=== PATIENT | female | born 1960 | race Caucasian/White ===

== ENCOUNTER → 2017-10-31 | Outpatient (CLI) | payer OTHER ==
--- NOTE | 2017-10-31 15:55 | Diagnostic Imaging Report ---
PROCEDURE:X-RAY LIMITED SKULL, LESS THAN FOUR VIEWS COMPARISON:None. INDICATIONS:MRI safety screening FINDINGS/CONCLUSION: 2 views of the skull (AP and lateral). 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 Findings were discussed with the nuclear technologist. Planned MRI was canceled. Dictated by: Akira Mata M.D. on 10/31/2017 at 15:57 Electronically approved by: Akira Mata M.D. on 10/31/2017 at 15:57
== END ==
LOC: MRI 14:23
PROVIDERS: ATTEND Specialist
DX: M54.5 Low back pain (principal)
CPT/HCPCS: 70250

== ENCOUNTER → 2017-12-26 | Outpatient (CLI) | payer OTHER ==
--- NOTE | 2017-12-27 07:56 | Diagnostic Imaging Report ---
Examination: CT LUMBAR SPINE WITHOUT CONTRAST History: Low back pain Comparison studies: None. Technique: Axial images were obtained through the lumbar spine from T12. Coronal and sagittal reconstructions obtained from the axial data. Intravenous contrast: None Findings: The usual 5 non-rib bearing lumbar vertebral bodies are present. There is a transitional vertebrae with sacralization of L5. Alignment: Normal lordosis. No scoliosis. Soft tissues: Atherosclerotic calcification of the abdominal aorta. Paraspinal muscles: No abnormalities. Sacroiliac joints: Vacuum phenomenon is demonstrated bilaterally, consistent with degenerative changes. Vertebrae: No fractures, infection or neoplasm. Degenerative changes: L1-L2: No abnormalities. L2-L3: No abnormalities. L3-L4: Asymmetric to the left bulge and mild ligamentum flavum thickening results in mild right and severe left neural foraminal narrowing. No canal stenosis. L4-L5: Grade I anterolisthesis without pars defect. Uncovering of a diffuse disc bulge, mild ligamentum flavum thickening and severe bilateral facet arthropathy result in severe bilateral neural foraminal narrowing and moderate canal stenosis. L5-S1: Rudimentary disc. IMPRESSION: 1. Degenerative changes at L3-L4 and L4-L5 with degenerative grade I anterolisthesis and moderate canal and severe bilateral foraminal stenosis at L4-L5. 2. Severe left foraminal narrowing at L3-L4. Signed by: Dr. Danielle Combs M.D. on 12/27/2017 7:53 AM
== END ==
LOC: CT 13:49
PROVIDERS: ATTEND Specialist
DX: M54.5 Low back pain (principal)
CPT/HCPCS: 72131

== ENCOUNTER 2021-05-21 20:12 | Inpatient (IN) | payer SELFPAY ==
[~2021-05-21] VITALS: Ht 152.4 cm; Wt 49.9 kg
[2021-05-21] MEDS ORDERED: ACETAMINOPHEN 325 MG TAB PO STA (20:34)
[2021-05-21] MEDS ORDERED: SODIUM CHLORIDE 0.9% 1000ML 1,000 ML IV STA (20:34)
[2021-05-21] MEDS ORDERED: IPRATROPIUM BROMIDE 0.02% 2.5 ML NEB NEB STA (20:38)
[2021-05-21] MEDS ORDERED: ALBUTEROL SULF 0.083% NEB SOLN 3 ML NEB NEB STA (20:38)
[2021-05-21] MEDS ORDERED: PIPERACILLIN/TAZOBACTAM 3.375 GM in SODIUM CHLORIDE 0.9% 50ML 50 ML IV ONE (20:45)
[2021-05-21] MEDS ORDERED: IPRATROPIUM BROMIDE 0.02% 2.5 ML NEB ONE (21:15)
[2021-05-21] MEDS ORDERED: ALBUTEROL SULF 0.083% NEB SOLN 3 ML NEB ONE (21:15)
[2021-05-21] MEDS ORDERED: ACETAMINOPHEN 325 MG TAB ONE (21:15)
[2021-05-21] MEDS ORDERED: SODIUM CHLORIDE 0.9% 250ML 250 ML ONE (21:16)
[2021-05-21] MEDS ORDERED: SODIUM CHLORIDE 0.9% 1000ML 1,000 ML ONE (21:16)
[2021-05-21] MEDS ORDERED: SODIUM CHLORIDE 0.9% 50ML 100 ML ONE (21:16)
[2021-05-21] MEDS ORDERED: PIPERACILLIN/TAZOBACTAM 3.375 GM VIAL ONE (21:17)
[2021-05-21] MEDS ORDERED: ACETAMINOPHEN 325 MG TAB PO PRN (21:30)
[2021-05-21] MEDS ORDERED: ALBUTEROL SULF 0.083% NEB SOLN 3 ML NEB NEB SCH (21:30)
[2021-05-21] MEDS ORDERED: DEXTROSE 50% SYRINGE 50 ML IV PRN (21:30)
[2021-05-21 22:35] LABS: CREATINE KINASE 48 IU/L (29-168)
[2021-05-21] MEDS: ALBUTEROL/IPRATROPIUM 3 ML NEB NEB SCH (23:00)
[2021-05-22] VITALS (9 sets, daily range): BP systolic 105–133; BP diastolic 70–79
[2021-05-22] MEDS ORDERED: PIPERACILLIN/TAZOBACTAM 3.375 GM in SODIUM CHLORIDE 0.9% 50ML 50 ML IV SCH ×2
[2021-05-22] MEDS ORDERED: ONDANSETRON HCL INJ 2MG/ML 2ML 2 MG/ML VIAL IV PRN (01:30)
[2021-05-22] MEDS ORDERED: ENALAPRILAT IV INJ 1.25 MG/ML VIAL IV PRN (01:30)
[2021-05-22] MEDS ORDERED: DIPHENHYDRAMINE HCL INJ 50 MG/ML VIAL IV PRN (01:30)
[2021-05-22] MEDS ORDERED: MELATONIN 3 MG TAB PO STA (02:04)
[2021-05-22] MEDS: GUAIFENESIN/DEXTROMETHORPHAN LIQD 5 ML UDC PO PRN ×4 (02:23→15:19)
[2021-05-22] MEDS ORDERED: INFLUENZA VIRUS VAC SPLIT INJ 0.5 ML SYR IM SCH (02:25)
[2021-05-22] MEDS ORDERED: PNEUMOCOCCAL VACCINE POLYVALENT 23 MCG/0.5 ML VIAL IM SCH (02:25)
[2021-05-22] MEDS: ALBUTEROL/IPRATROPIUM 3 ML NEB NEB SCH ×6 (02:45→23:05)
[2021-05-22] MEDS: SOD CHL 0.9% IV SCH ×8 (03:00→21:27)
[2021-05-22] MEDS: PIPERACILLIN IV SCH ×8 (03:00→21:27)
[2021-05-22] MEDS: TAZO IV SCH ×8 (03:00→21:27)
[2021-05-22] MEDS ORDERED: SODIUM CHLORIDE 0.9% 250ML 250 ML ONE (03:27)
[2021-05-22] MEDS ORDERED: METFORMIN HCL500 M1 PO (03:46)
[2021-05-22] MEDS ORDERED: TERBUTALINE SULF5 MG PO (03:46)
[2021-05-22 06:23] LABS: BASOPHILS # (AUTO) 0.1 (0.0-0.1); BASOPHILS % 0.8 % (0.0-1.0); EOSINOPHILS # (AUTO) 0.1 (0.0-0.4); HEMATOCRIT 42.8 % (34.2-44.1); LYMPHOCYTES # (AUTO) 1.1 (1.0-3.2); LYMPHOCYTES % 16.8 % (18.0-39.1); MEAN CORPUSCULAR HEMOGLOBIN 32.6 pg (28-32); MEAN CORPUSCULAR HGB CONC 32.7 g/dL (31-35); MEAN CORPUSCULAR VOLUME 99.5 fL (81-99); MONOCYTES # (AUTO) 0.8 (0.2-0.8); MONOCYTES % 12.3 % (4.4-11.3); NEUTROPHILS # (AUTO) 4.3 (2.1-6.9); NEUTROPHILS % 68.5 % (38.7-80.0); PLATELET COUNT 133 x10e3/uL (140-360); RED CELL DISTRIBUTION WIDTH 12.2 % (11.7-14.4)
[2021-05-22 06:37] LABS: CREATINE KINASE MB 5.6 ng/mL (0-5.0)
[2021-05-22 06:39] LABS: ALBUMIN 2.8 g/dL (3.5-5.0); ALBUMIN/GLOBULIN RATIO 0.9 (0.8-2.0); ANION GAP 13.4 mmol/L (8-16); CALCIUM 8.4 mg/dL (8.4-10.2); CHOL/HDL RATIO 3.5 (3.0-3.6); CREATININE, SERUM 0.8 mg/dL (0.57-1.11); MAGNESIUM 1.6 MG/DL (1.3-2.1); POTASSIUM 3.4 mmol/L (3.5-5.1)
[2021-05-22] MEDS: INSULIN REGULAR, HUMAN 100 UNIT/1 ML SQ SCH ×4 (07:30→20:48)
[2021-05-22] MEDS ORDERED: HYDRALAZINE HCL 20 MG/ML VIAL IV PRN (07:45)
[2021-05-22] MEDS ORDERED: POLYETHYLENE GLYCOL 3350 17 GM PACK PO PRN (07:45)
[2021-05-22] MEDS ORDERED: ACETAMIN/BUTALBITAL/CAFFEINE TAB PO PRN (07:45)
[2021-05-22] MEDS ORDERED: CEPACOL SORE THROAT LOZENGES PO ONE (08:30)
[2021-05-22] MEDS ORDERED: MAGNESIUM SULFATE 2GM/50ML 50 ML IV ONE (08:30)
[2021-05-22] MEDS ORDERED: GUAIFENESIN 600 MG TAB PO SCH (09:00)
[2021-05-22] MEDS ORDERED: FAMOTIDINE 20 MG/2 ML VIAL IV SCH (09:00)
[2021-05-22] MEDS: FAMOTIDINE 20 MG TAB PO SCH ×2 (09:49→16:30)
[2021-05-22] MEDS: SODIUM CHLORIDE 0.9% 1000ML 1,000 ML IV SCH (09:49)
[2021-05-22] MEDS: METFORMIN HCL 500 MG TAB PO SCH (09:49)
[2021-05-22] MEDS: GUAIFENESIN 600MG/DEXTROMETHORPHAN 30MG TABSR PO SCH ×2 (09:50→17:00)
[2021-05-22] MEDS: CEPACOL SORE THROAT LOZENGES PO PRN (09:50)
[2021-05-22] MEDS: HYDROCODONE/APAP 5MG-325MG TAB PO PRN ×3 (09:50→21:26)
[2021-05-22] MEDS ORDERED: SODIUM CHLORIDE 0.9% 50ML 50 ML ONE (10:40)
[2021-05-22] MEDS ORDERED: IOPAMIDOL 370 MG/ML 200 ML INFUS..BTL INJ ONE (10:40)
[2021-05-22] MEDS ORDERED: POTASSIUM CHLORIDE 20 MEQ TAB CR PO ONE (11:30)
[2021-05-22] MEDS ORDERED: SODIUM CHLORIDE 0.45% 1,000 ML IV SCH (14:15)
[2021-05-22] MEDS ORDERED: FAMOTIDINE 20 MG TAB PO SCH (16:30)
[2021-05-22] MEDS: ENOXAPARIN SOD INJ 40 MG/0.4 ML SYR SC SCH (17:00)
[2021-05-22 19:04] LABS: CREATINE KINASE MB 5.9 ng/mL (0-5.0)
[2021-05-22] MEDS: MELATONIN 3 MG TAB PO SCH (21:27)
[2021-05-23] VITALS: BP 134/84
[2021-05-23] MEDS: ALBUTEROL/IPRATROPIUM 3 ML NEB NEB SCH ×4 (02:10→23:25)
[2021-05-23] MEDS: TAZO IV SCH ×8 (03:30→21:39)
[2021-05-23] MEDS: PIPERACILLIN IV SCH ×8 (03:30→21:39)
[2021-05-23] MEDS: SOD CHL 0.9% IV SCH ×8 (03:30→21:39)
[2021-05-23 04:00] VITALS: BP 139/103
[2021-05-23] MEDS: HYDROCODONE/APAP 5MG-325MG TAB PO PRN ×4 (04:15→22:30)
[2021-05-23] MEDS: GUAIFENESIN/DEXTROMETHORPHAN LIQD 5 ML UDC PO PRN ×2 (04:19→21:39)
[2021-05-23] MEDS: SODIUM CHLORIDE 0.9% 1000ML 1,000 ML IV SCH (05:00)
[2021-05-23 06:09] LABS: BASOPHILS % 1.2 % (0.0-1.0); EOSINOPHILS # (AUTO) 0.1 (0.0-0.4); EOSINOPHILS % 2.6 % (0.0-6.0); HEMATOCRIT 38.7 % (34.2-44.1); HEMOGLOBIN 12.5 g/dL (12.0-16.0); LYMPHOCYTES # (AUTO) 0.9 (1.0-3.2); LYMPHOCYTES % 25.6 % (18.0-39.1); MEAN CORPUSCULAR HEMOGLOBIN 32.3 pg (28-32); MEAN CORPUSCULAR HGB CONC 32.3 g/dL (31-35); MONOCYTES # (AUTO) 0.4 (0.2-0.8); MONOCYTES % 11.8 % (4.4-11.3); NEUTROPHILS % 58.2 % (38.7-80.0); PLATELET COUNT 123 x10e3/uL (140-360); RED BLOOD COUNT 3.87 x10e6/uL (3.6-5.1); RED CELL DISTRIBUTION WIDTH 12.4 % (11.7-14.4)
[2021-05-23 06:36] LABS: ANION GAP 9.8 mmol/L (8-16); CALCIUM 7.9 mg/dL (8.4-10.2); CREATININE, SERUM 0.81 mg/dL (0.57-1.11); MAGNESIUM 1.7 MG/DL (1.3-2.1); PHOSPHORUS 3.7 MG/DL (2.3-4.7); POTASSIUM 3.8 mmol/L (3.5-5.1)
[2021-05-23] MEDS: INSULIN REGULAR, HUMAN 100 UNIT/1 ML SQ SCH ×4 (07:30→21:00)
[2021-05-23 08:11] VITALS: BP 135/81
[2021-05-23] MEDS: FAMOTIDINE 20 MG TAB PO SCH ×2 (09:25→16:21)
[2021-05-23] MEDS: METFORMIN HCL 500 MG TAB PO SCH (09:25)
[2021-05-23] MEDS: GUAIFENESIN 600MG/DEXTROMETHORPHAN 30MG TABSR PO SCH ×2 (09:25→16:21)
[2021-05-23 11:45] VITALS: BP 149/95
[2021-05-23] MEDS: ENOXAPARIN SOD INJ 40 MG/0.4 ML SYR SC SCH (16:21)
[2021-05-23 20:00] VITALS: BP 181/98
[2021-05-23] MEDS: MELATONIN 3 MG TAB PO SCH (21:39)
[2021-05-24] VITALS (9 sets, daily range): BP systolic 126–182; BP diastolic 71–118
[2021-05-24] MEDS: CEPACOL SORE THROAT LOZENGES PO PRN (01:24)
[2021-05-24] MEDS: ALBUTEROL/IPRATROPIUM 3 ML NEB NEB SCH ×5 (02:12→19:00)
[2021-05-24] MEDS: PIPERACILLIN IV SCH ×8 (03:05→20:52)
[2021-05-24] MEDS: TAZO IV SCH ×8 (03:05→20:52)
[2021-05-24] MEDS: SOD CHL 0.9% IV SCH ×8 (03:05→20:52)
[2021-05-24] MEDS: HYDROCODONE/APAP 5MG-325MG TAB PO PRN ×4 (05:04→19:39)
[2021-05-24 06:11] LABS: BASOPHILS % 0.8 % (0.0-1.0); EOSINOPHILS # (AUTO) 0.1 (0.0-0.4); EOSINOPHILS % 2.3 % (0.0-6.0); HEMATOCRIT 41.1 % (34.2-44.1); HEMOGLOBIN 12.7 g/dL (12.0-16.0); LYMPHOCYTES % 25.7 % (18.0-39.1); MEAN CORPUSCULAR HEMOGLOBIN 31.9 pg (28-32); MEAN CORPUSCULAR HGB CONC 30.9 g/dL (31-35); MEAN CORPUSCULAR VOLUME 103.3 fL (81-99); MONOCYTES # (AUTO) 0.4 (0.2-0.8); MONOCYTES % 10.8 % (4.4-11.3); NEUTROPHILS # (AUTO) 2.4 (2.1-6.9); NEUTROPHILS % 59.9 % (38.7-80.0); PLATELET COUNT 127 x10e3/uL (140-360); RED BLOOD COUNT 3.98 x10e6/uL (3.6-5.1); RED CELL DISTRIBUTION WIDTH 12.4 % (11.7-14.4)
[2021-05-24 06:39] LABS: CALCIUM 8.7 mg/dL (8.4-10.2); CREATININE, SERUM 0.8 mg/dL (0.57-1.11)
[2021-05-24] MEDS: INSULIN REGULAR, HUMAN 100 UNIT/1 ML SQ SCH ×4 (07:30→21:07)
[2021-05-24] MEDS: GUAIFENESIN 600MG/DEXTROMETHORPHAN 30MG TABSR PO SCH ×2 (08:25→16:51)
[2021-05-24] MEDS: METFORMIN HCL 500 MG TAB PO SCH (08:25)
[2021-05-24] MEDS: FAMOTIDINE 20 MG TAB PO SCH ×2 (08:25→16:51)
[2021-05-24] MEDS ORDERED: BENZONATATE 100 MG CAP PO PRN (08:45)
[2021-05-24] MEDS ORDERED: GUAIFENESIN/CODEINE 5 ML LIQD PO PRN (08:45)
[2021-05-24] MEDS ORDERED: METHYLPREDNISOLONE SOD SUCC 125 MG/2ML VIAL IV ONE (12:30)
[2021-05-24] MEDS ORDERED: ONDANSETRON HCL 4 MG ORAL DISINTEGRATING TAB PO PRN (12:45)
[2021-05-24] MEDS: ENOXAPARIN SOD INJ 40 MG/0.4 ML SYR SC SCH (16:51)
[2021-05-24] MEDS: MELATONIN 3 MG TAB PO SCH (20:52)
[2021-05-25] MEDS: ALBUTEROL/IPRATROPIUM 3 ML NEB NEB SCH ×5 (00:03→15:00)
[2021-05-25 00:19] VITALS: BP 145/79
[2021-05-25] MEDS: HYDROCODONE/APAP 5MG-325MG TAB PO PRN ×2 (03:25→09:04)
[2021-05-25 04:00] VITALS: BP 133/71
[2021-05-25] MEDS: SOD CHL 0.9% IV SCH ×4 (04:13→08:53)
[2021-05-25] MEDS: PIPERACILLIN IV SCH ×4 (04:13→08:53)
[2021-05-25] MEDS: TAZO IV SCH ×4 (04:13→08:53)
[2021-05-25 06:07] LABS: BASOPHILS % 0.2 % (0.0-1.0); HEMATOCRIT 41.9 % (34.2-44.1); HEMOGLOBIN 13.7 g/dL (12.0-16.0); LYMPHOCYTES # (AUTO) 0.5 (1.0-3.2); LYMPHOCYTES % 10.6 % (18.0-39.1); MEAN CORPUSCULAR HEMOGLOBIN 32.2 pg (28-32); MEAN CORPUSCULAR HGB CONC 32.7 g/dL (31-35); MEAN CORPUSCULAR VOLUME 98.6 fL (81-99); MONOCYTES # (AUTO) 0.3 (0.2-0.8); MONOCYTES % 6.7 % (4.4-11.3); NEUTROPHILS # (AUTO) 3.9 (2.1-6.9); NEUTROPHILS % 81.7 % (38.7-80.0); PLATELET COUNT 144 x10e3/uL (140-360); RED BLOOD COUNT 4.25 x10e6/uL (3.6-5.1)
[2021-05-25 07:04] LABS: ALBUMIN/GLOBULIN RATIO 0.8 (0.8-2.0); ANION GAP 16.4 mmol/L (8-16); CALCIUM 9.7 mg/dL (8.4-10.2); CREATININE, SERUM 0.7 mg/dL (0.57-1.11); POTASSIUM 3.4 mmol/L (3.5-5.1)
[2021-05-25] MEDS: INSULIN REGULAR, HUMAN 100 UNIT/1 ML SQ SCH ×2 (07:30→11:30)
[2021-05-25] MEDS: FAMOTIDINE 20 MG TAB PO SCH (07:30)
[2021-05-25 08:00] VITALS: BP 141/81
[2021-05-25] MEDS: GUAIFENESIN 600MG/DEXTROMETHORPHAN 30MG TABSR PO SCH (08:53)
[2021-05-25] MEDS: METFORMIN HCL 500 MG TAB PO SCH (08:53)
[2021-05-25 11:57] VITALS: BP 163/98
[2021-05-25] MEDS ORDERED: TESSALON PERLE100 MG PO (14:34)
[2021-05-25] MEDS ORDERED: METFORMIN HCL500 MG PO (14:38)
[2021-05-25] MEDS ORDERED: AZITHROMYCIN 250 MG TAB PO SCH (22:00)
== END 2021-05-25 16:04 | disposition home or self-care (01) | DRG 871 ==
LOC: FSED 20:15 → ERHOLD 21:29 → MED/SURG3 05-22 01:03
PROVIDERS: ADMIT Internal Medicine; ATTEND Internal Medicine
DX: A41.9 Sepsis, unspecified organism (principal); J18.9 Pneumonia, unspecified organism; J96.21 Acute and chronic respiratory failure with hypoxia; J44.1 Chronic obstructive pulmonary disease with (acute) exacerbation; J44.0 Chronic obstructive pulmonary disease with (acute) lower respiratory infection; E87.6 Hypokalemia; E11.9 Type 2 diabetes mellitus without complications; Z20.822 Contact with and (suspected) exposure to COVID-19; E83.42 Hypomagnesemia; R51.9 Headache, unspecified
CPT/HCPCS: 36415; 71045; 71260; 80048; 80053; 80061; 82550; 82553; 82948; 83036; 83605; 83735; 83880; 84100; 84443; 84484; 85025; 85610; 87040; 87400; 87420; 93005; 94640; 94799; 96361; 96372; 96374; 97139; 99284; J0360; J0456; J1650; J1817; J2543; J2930; J3475; J7030; J7050; Q9967; U0002